=== PATIENT | male | born 1950 | race Caucasian/White ===

== ENCOUNTER → 2024-11-29 | Outpatient (CLI) | payer OTHER ==
--- NOTE | 2024-11-29 10:17 | HMCIMG ---
UPPER GI SERIES History: Diaphragmatic hernia without obstruction or gangrene, GERD w/ESOPHAGITIS Comparison: none Contrast: barium sulfate suspension, effervescent granules TECHNIQUE: EXAMINATION IS DONE UNDER FLUOROSCOPIC CONTROL, WITH FLUOROSCOPIC SPOTS OBTAINED. ALSO, OVERHEAD AP, LATERAL AND OBLIQUE VIEWS WERE OBTAINED. FINDINGS: Under fluoroscopic evaluation, the patient's esophagus demonstrates normal course, contour and caliber. Normal motility is seen. There is a small hiatal hernia. No reflux is seen. The stomach, duodenal bulb, duodenal C-loop, and visualized proximal small bowel show no extrinsic compression, fixed filling defect, ulcerations or abnormalities in mucosal pattern. No tumor is identified. There is no gastric outlet obstruction. There is no extravasation. There is no evidence of malrotation. IMPRESSION: Small hiatal hernia.
== END | disposition home or self-care (01) ==
LOC: RAH 08:20 → EDUNIT# 09:00
PROVIDERS: ATTEND Surgery
DX: K44.9 Diaphragmatic hernia without obstruction or gangrene (principal); K21.00 Gastro-esophageal reflux disease with esophagitis, without bleeding; K22.2 Esophageal obstruction; R49.8 Other voice and resonance disorders
CPT/HCPCS: 74240

== ENCOUNTER 2024-12-27 05:47 | Observation (INO) | payer OTHER ==
[2024-12-24 11:19] LABS: POTASSIUM 4.6 mmol/L (3.5-5.1)
[2024-12-24 11:42] LABS: INR 0.97 (0.85-1.15); PROTHROMBIN TIME 10.3 SEC (9.6-11.6)
[2024-12-24 11:43] VITALS: BP 145/79; PULSE 56; RESP 18; TEMP 97.6
[2024-12-24 11:43] LABS: PARTIAL THROMBOPLASTIN TIME 27.1 SEC (26.3-35.5)
[2024-12-24 11:50] LABS: BASOPHILS # (AUTO) 0.04 K/uL (0.00-0.20); BASOPHILS % (AUTO) 0.7 % (0.0-5.0); EOSINOPHILS # (AUTO) 0.32 K/uL (0.00-0.70); EOSINOPHILS % (AUTO) 5.3 % (0.0-8.0); IMMATURE GRANULOCYTE ABSOLUTE 0.02 K/uL (0-1); LYMPHOCYTES # (AUTO) 1.2 K/uL (1.0-4.8); LYMPHOCYTES % (AUTO) 19.3 % (21.0-51.0); MEAN CORPUSCULAR HEMOGLOBIN 30.1 pg (27.0-33.0); MEAN CORPUSCULAR HGB CONC 32.8 g/dL (32.0-36.0); MEAN CORPUSCULAR VOLUME 91.6 fL (79-99); MONOCYTES # (AUTO) 0.3 K/uL (0.1-1.0); MONOCYTES % (AUTO) 4.9 % (3.0-13.0); NEUTROPHILS # (AUTO) 4.2 K/uL (1.8-7.7); NEUTROPHILS % (AUTO) 69.5 % (40.0-77.0); PLATELET COUNT (AUTO) 210 K/uL (130-400); RED BLOOD CELL COUNT(AUTO) 5.02 MIL/uL (4.50-6.20); RED CELL DISTRIBUTION WIDTH 13.3 % (11.0-15.5); WHITE BLOOD COUNT (AUTO) 6.1 K/uL (4.8-10.8)
--- NOTE | 2024-12-24 13:20 | EKG ---
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
--- NOTE | 2024-12-26 10:30 | NUR ---
EKG REPORTED EKG RESULTS TO DR. GROSS, INFORMED PATIENT HAS CARDIAC CLEARANCE IN CHART. STATES OK TO PROCEED
[2024-12-27] VITALS (24 sets, daily range): BP systolic 120–159; BP diastolic 45–105; PULSE 60–95; RESP 15–20; TEMP 96.8–98.7; O2SAT 97–98
[~2024-12-27] VITALS: Ht 175.3 cm; Wt 63.7 kg
[~2024-12-27 05:47] MED LIST: OMEP40CA21 PO
[2024-12-27] MEDS: hydroMORPHone 1 MG INJ ONE (07:17)
[2024-12-27] MEDS: acetaMINOPHEN 100 ML ONE (07:17)
[2024-12-27] MEDS ORDERED: MIDAZOLAM HCL 1 MG/ML 2ML VIAL ONE (07:21)
[2024-12-27] MEDS ORDERED: proPOFol 10 MG/ML 20ML VIAL IV ONE (07:21)
[2024-12-27] MEDS ORDERED: FENTanyl CITRate PF 50 MCG/1 ML 2ML VIAL ONE (07:21)
[2024-12-27] MEDS ORDERED: LIDOCAINE PF 100MG/5ML (2%) SYRINGE 5ML ONE (07:23)
[2024-12-27] MEDS ORDERED: rocuRONium bROMide 10MG/1ML 5ML VL ONE (07:24)
[2024-12-27] MEDS: PoTASSium chloRIDE 20MEQ/100ML 100 ML IV ONE (07:53)
[2024-12-27] MEDS: ceFAZolin SODIUM 2 GM VIAL ONE (08:23)
[2024-12-27] MEDS ORDERED: DIPH50 PO (08:24)
[2024-12-27] MEDS ORDERED: dexaMETHasone SOD PHOSPHATE 4 MG/ML 1ML VIAL ONE (08:25)
[2024-12-27] MEDS ORDERED: ondanSETRON 4MG INJ ONE (08:26)
[2024-12-27] MEDS: LACTATED RINGERS 1000ML 1,000 ML IV ONE (08:26)
[2024-12-27] MEDS: ceFAZolin SODIUM 2 GM VIAL IVPB ONE ×2 (08:30)
[2024-12-27] MEDS ORDERED: ePHEDrine SULFate 50 MG/ML AMPULE ONE (09:05)
[2024-12-27] MEDS ORDERED: NEOSTIGMINE METHYLSULFATE 1MG/ML IV ONE (09:59)
[2024-12-27] MEDS ORDERED: GLYCOPYRROLATE 0.2 MG/ML 5 ML VIAL ONE (09:59)
--- NOTE | 2024-12-27 10:09 | OP ---
Operative Note: DATE OF PROCEDURE: 12/27/24 SURGEON: VALDEMAR LOERA MD LEAK HUNTER: Orlando Loera MD p.a. C ANESTHESIA: General and local ANESTHESIOLOGIST/BENCH HAND: [facility] anesthesia team PREOPERATIVE DIAGNOSIS: Symptomatic paraesophageal hiatal hernia POSTOPERATIVE DIAGNOSIS: As above SYNOPSIS: Paraesophageal hiatal hernia repair with mesh reinforcement and posterior partial fundoplication performed without complication PROCEDURE: 1. Robotic assisted paraesophageal hiatal hernia repair with mesh reinforcement 2. Posterior partial fundoplication 3. EGD ESTIMATED BLOOD LOSS: Minimal, less than 30 cc INDICATIONS: As above DESCRIPTION OF PROCEDURE: After standard precautions and preparations were undertaken a Veress needle and optical trocar were used to enter the abdominal cavity. All other instruments were placed under direct vision. The robotic system was docked in the standard fashion. We began by opening pars flaccida and identifying the right donnell of the diaphragm. From there we are able to enter into the mediastinum into a nearly avascular plane. This plane was developed circumferentially to allow the GE junction to fall out of the mediastinum and into the peritoneal cavity without any tension. There was a small rent in the right pleural lining exposing the right chest. This rent was opened by a few cm in order to prevent any kind of tension phenomenon. The majority of the dissection of the case was undertaken at a intra-abdominal pressure of 8-10 mmHg. Once the right and left crura were free of unwanted attachments down to the crossing fibers we began our hiatal hernia repair. We sutured the right and left crura back in reapproximation from the crossing fibers upwards towards the posterior esophageal wall. Care was taken not to over tighten. This was then reinforced with placement of a mesh. The mesh was cut in a horseshoe fashion and placed as an overlay. It was sutured in place to prevent mesh migration. Lastly we mobilize the proximal fundus and pulled it through the retroesophageal window. It was wrapped 270 around the posterior distal esophagus. It was sutured in place. Throughout the case the EGD scope was utilized to view appropriate anatomic landmarks. At the end of the case the GE junction was resting below the hiatus, the hiatal hernia repair was not overly tightened, and the posterior partial fundoplication could be visualized and a retro flexed view. All instrument counts were verified as correct prior to ending the case inclu ding needles and sponges. VALDEMAR LOERA MD Dec 27, 2024 10:09
[2024-12-27] MEDS: PROMETHAZINE HCL 25 MG/ML 1ML AMPULE IM ONE (10:46)
[2024-12-27] MEDS ORDERED: HYDROcod/acetaMINOPHEN 7.5/325 MG 15 ML UDCUP PO PRN (11:00)
[2024-12-27] MEDS ORDERED: ondanSETRON 4MG INJ IVP PRN (11:00)
[2024-12-27] MEDS: LACTATED RINGERS 1000ML 1,000 ML IV SCH (11:00)
[2024-12-27] MEDS ORDERED: hydroMORPHone 1 MG INJ IVP PRN (11:00)
[2024-12-27] MEDS ORDERED: PROCHLORPERAZINE 10MG/2ML INJ IV PRN (11:00)
[2024-12-27] MEDS: ketOROlac 30MG VIAL (30MG/ML) IV PRN (11:21)
--- NOTE | 2024-12-27 13:54 | PN ---
GENERAL SURGERY PROGRESS NOTE Date/Time Patient Seen: [12/27/2024 11:00 a.m. ] Problem List: [ ] Interval History: [ Postop day 0. Pain tolerable with p.r.n. medication.] Current Medications Medications (Trade) Dose Ordered Sig/Joyce Route Start Time Stop Time Status Last Admin Dose Admin Famotidine (Pepcid 20mg Vial) 20 mg BID IV 12/27/24 21:00 01/26/25 20:59 Lactated Ringer's 1,000 ml @ 125 mls/hr Q8H IV 12/27/24 11:00 01/26/25 10:59 Physical Examination: ABD: [Incisions clean, dry and intact, Dermabond in place Vital Signs (last 8hr) Date Time Temp Pulse Resp B/P (MAP) Pulse Ox O2 Delivery O2 Flow Rate FiO2 12/27/24 11:14 97.5 84 17 127/66 95 Room Air 12/27/24 11:10 98 Nasal Cannula* 2 28 12/27/24 11:09 84 16 132/71 94 Room Air 12/27/24 11:04 83 15 136/77 95 Room Air 12/27/24 10:59 80 15 125/61 96 Nasal Cannula 2.0 12/27/24 10:54 85 17 134/74 97 Nasal Cannula 2.0 12/27/24 10:49 80 15 144/72 96 Nasal Cannula 3.0 12/27/24 10:44 92 16 136/74 96 Nasal Cannula 3.0 12/27/24 10:39 95 16 134/72 97 Nasal Cannula 3.0 12/27/24 10:34 91 15 133/68 99 Nonrebreathing Mask 10.0 12/27/24 10:29 81 15 134/65 99 Nonrebreathing Mask 10.0 12/27/24 10:24 97.7 85 16 125/68 99 Nonrebreathing Mask 10.0 12/27/24 06:30 96.8 65 18 143/79 98 Room Air Laboratory: [ ] Diagnostics / Radiology: [Copy/Paste Echos/Imaging Report here] Impression and Plan: [ Plan is for discharge home in the next day or two as long as patient fred ating p.o., ambulatory and pain under control. Discussed with the patient and family. They understand and agree.] JOSHUA LOERA Dec 27, 2024 13:54
[2024-12-27] MEDS: FAMOTIDINE 20MG VIAL IV SCH (20:02)
--- NOTE | 2024-12-28 01:01 | NUR ---
REFUSED IV PT COMPLAINING OF IV ACCESS STATING THAT IT WAS BOTHERING HIM. CHECKED IV STATING THAT IT WASN'T INFILTRATED AND FLUSHED WELL. PATIENT STATED HE WANTED HIS IV OUT. EDUCATED PATIENT THE IMPORTANCE OF IV ACCESS. PATIENT CONTINUED TO REFUSE STATING THAT HE WILL BE OKAY. IV REFUSAL SIGNED AND IN CHART.
--- NOTE | 2024-12-28 08:08 | NUR ---
AMA PATIENT LEFT AMA AT 0713 THIS MORNING WITH OLGA HARRIS. I NOTIFIED CATARINA MENA AT 0735. I HAD NOT RECEIVED REPORT ON THE PATIENT AT THE TIME OF AMA.
== END 2024-12-28 07:15 | disposition left against medical advice (07) ==
LOC: DAH 05:47 → INTOOBSV 05:48 → DAHIP 05:48 → 3DH 11:10
PROVIDERS: ADMIT Surgery; ATTEND Surgery
DX: K44.9 Diaphragmatic hernia without obstruction or gangrene (principal); K21.00 Gastro-esophageal reflux disease with esophagitis, without bleeding; K22.2 Esophageal obstruction; Z86.2 Personal history of diseases of the blood and blood-forming organs and certain disorders involving the immune mechanism; Z79.899 Other long term (current) drug therapy
CPT/HCPCS: 80048; 85025; 85610; 85730; 86850 ×2; 86900 ×2; 86901 ×2; 36415 ×2; 93005; 96374; 96375; 43282; A6260; J1100; G0378 ×16; A4223 ×2; A4600; A4663; A4215 ×2; J7120; J3490 ×4; J3010; J1171; J2550; J2003; J2250; J2704; J2405; J3480; J1885; J2710; J0665; J0690 ×2; C1781; A4930; A4213; A4222; A4221; A4216; 43235

== ENCOUNTER 2025-04-07 06:06 | Emergency (ER) | payer OTHER ==
[~2025-04-07] VITALS: Ht 175.3 cm; Wt 61.4 kg
[~2025-04-07 06:06] MED LIST changes: +DIPH50 PO
--- NOTE | 2025-04-07 06:15 | EKG ---
[facility] Test Date: 2025-04-07 Test Time: 06:11:41 Pat Name: ANKUSH DAY Department: ED Room: Gender: M Remedial Reading Teacher: [id number] : 1950 Requested By: KATERINA POTTER Order Number: [id number] Reading MD: Raul Fragoso Measurements Intervals [place] Rate: 69 P: 41 [place]: 192 QRS: -65 QRSD: 134 T: 25 QT: 449 QTc: 481 Interpretive Statements Sinus rhythm Ventricular premature complex RBBB and LAFB Compared to ECG 12/24/2024 11:08:47 Ventricular premature complex(es) now present Sinus bradycardia no longer present Bifascicular block no longer present Electronically Signed On 04-08-2025 00:07:24 CDT by Raul rFagoso Please click the below link to view image of tracing.
[2025-04-07 06:19] LABS: IMMATURE GRANULOCYTE ABSOLUTE 0.07 K/uL (0-1); NUCLEATED RED BLOOD CELLS 0.0 % (0.0-0.19); PLATELET COUNT (AUTO) 231 K/uL (130-400); RED BLOOD CELL COUNT(AUTO) 4.68 MIL/uL (4.50-6.20); RED CELL DISTRIBUTION WIDTH 13.0 % (11.0-15.5); WHITE BLOOD COUNT (AUTO) 14.9 K/uL (4.8-10.8)
[2025-04-07] MEDS: LACTATED RINGERS 1000ML 1,000 ML IV ONE (06:23)
[2025-04-07 06:28] LABS: CREATININE 1.4 mg/dL (0.5-1.3); GLOMERULAR FILTR. RATE CALC 53.0 mL/min (>90); GLUCOSE,RANDOM 141.0 mg/dL (70-105); SODIUM SERUM 144.0 mmol/L (136-145); UREA NITROGEN, BLOOD 21.0 mg/dL (7-18)
--- NOTE | 2025-04-07 06:39 | ERN ---
ED Note History of Present Illness Stated Complaint: Patient comes in because of the left lower quadrant abdominal pain and some chronic diarrhea. Says he falls up with digestive specialists that it does not knowwhy has a denies any other previous medical problems denies chest pain or shortness of breath Chief Complaint: Abdominal Pain Time Seen by MD: 06:28 Allergies: Coded Allergies: No Known Drug Allergies (Unverified Allergy, Unknown, 12/24/24) Home Meds Reported Medications Diphenhydramine HCl (Benadryl) 50 Mg Cap, 50 MG PO AD PRN for SLEEP, CAP 12/27/24 Omeprazole (Omeprazole) 40 Mg Capsule.dr, 40 MG PO DAILY, CAP 12/24/24 Past Medical History Past Medical History: No Pertinent History Surgical History: Other Surgical History Other: ESOPHAGEAL HERNIA Review of System Dictation Constitutional: Negative for fever,chills, and weight loss Eyes: Negative for injury, pain,redness, and discharge ENT: Negative for injury,pain or swelling Cardiovascular: Negative for chest pain, palpitations, and edema Respiratory: Negative for shortness of breath, cough, and wheezing, Abdomen/GI: Abdominal pain diarrhea Back: Negative for injury and pain : Negative for injury, bleeding and discharge MS/Extremity: Negative for injury and deformity Skin: Negative for rash, and discoloration Neuro: Negative for headache, weakness, numbness, tingling, and seizure Psych: Negative for suicide ideation, homicidal ideation, and hallucinations Initial Vital Sign VS Vital Signs Date Time Temp Pulse Resp B/P (MAP) Pulse Ox O2 Delivery O2 Flow Rate FiO2 04/07/25 06:07 96.8 55 16 143/65 100 Room Air 04/07/25 06:15 0 21 Physical Exam Dictation General: awake, alert, NAD Head/Face: Normocephalic, atraumatic Eyes: PERRL, EOMI, vision at baseline ENT: oral cavity clear, TMs clear, no signs of infection Neck: Trachea midline, supple, no nuchal rigidity Cardiovascular: RRR, normal S1/S2, No MRGs, no JVD Respiratory: CTAB, no respiratory distress, No rales or wheezes Abdomen: Soft, non-tender, non-distended, normal bowel sounds, no guarding or rebound. Skin: Warm, dry, normal turgor, no rash MS/Extremity: Pulses equal, no cyanosis, neurovascular intact, FROM Neuro: COAx4, GCS 15, strength 5/5, CN 2-12 intact, normal cerebellar exam, normal gait, Psych: Normal behavior, mood, and affect normal Results (Laboratory/Radiology) Laboratory/Radiology Laboratory Tests Test 04/07/25 06:12 04/07/25 08:28 White Blood Count 14.9 K/uL (4.8-10.8) H Red Blood Count 4.68 MIL/uL (4.50-6.20) Hemoglobin 14.3 g/dL (14.0-18.0) Hematocrit 43.3 % (42-54) Mean Corpuscular Volume 92.5 fL (79-99) Mean Corpuscular Hemoglobin 30.6 pg (27.0-33.0) Mean Corpuscular Hemoglobin Concent 33.0 g/dL (32.0-36.0) Red Cell Distribution Width 13.0 % (11.0-15.5) Platelet Count 231 K/uL (130-400) Mean Platelet Volume 11.3 fL (7.5-10.5) H Immature Granulocyte % (Auto) 0.5 % (0-1) Neutrophils (%) (Auto) 87.2 % (40.0-77.0) H Lymphocytes (%) (Auto) 7.9 % (21.0-51.0) L Monocytes (%) (Auto) 3.4 % (3.0-13.0) Eosinophils (%) (Auto) 0.7 % (0.0-8.0) Basophils (%) (Auto) 0.3 % (0.0-5.0) Neutrophils # (Auto) 13.0 K/uL (1.8-7.7) H Lymphocytes # (Auto) 1.2 K/uL (1.0-4.8) Monocytes # (Auto) 0.5 K/uL (0.1-1.0) Eosinophils # (Auto) 0.10 K/uL (0.00-0.70) Basophils # (Auto) 0.04 K/uL (0.00-0.20) Absolute Immature Granulocyte (auto 0.07 K/uL (0-1) Nucleated Red Blood Cells 0.0 % (0.0-0.19) White Cell Morphology Comment See comments Sodium Level 144 mmol/L (136-145) Potassium Level 4.0 mmol/L (3.5-5.1) Chloride Level 106 mmol/L (101-111) Carbon Dioxide Level 30 mmol/L (21-32) Blood Urea Nitrogen 21 mg/dL (7-18) H Creatinine 1.4 mg/dL (0.5-1.3) H Glomerular Filtration Rate Calc 53 mL/min (>90) Random Glucose 141 mg/dL (70-105) H Total Calcium 9.6 mg/dL (8.5-10.1) Troponin I High Sensitivity 6 ng/L (4-75) Lipase 37 U/L (16-77) Urine Color LIGHT-YELLOW (YELLOW) Urine Appearance CLEAR (CLEAR) Urine pH 5.5 (5.0-8.0) Urine Specific [place] 1.011 (1.001-1.031) Urine Protein NEGATIVE mg/dL (NEGATIVE) Urine Glucose (UA) NEGATIVE mg/dL (NEGATIVE) Urine Ketones NEGATIVE mg/dL (NEGATIVE) Urine Occult Blood SMALL (NEGATIVE) H Urine Nitrate NEGATIVE (NEGATIVE) Urine Bilirubin NEGATIVE mg/dL (NEGATIVE) Urine Urobilinogen 0.2 mg/dL (0.2-1.0) Urine Leukocyte Esterase 25 [place]angela/uL (NEGATIVE) H Urine RBC 2-5 /HPF (0-1) H Urine WBC 6-10 /HPF (0-1) H Urine Bacteria None /HPF (None Seen) Urine Hyaline Casts 2-5 /LPF (0-1 /LPF) H ED Course ED Course Orders Procedure Category Date Status Time Vital Signs Per CPOE 04/07/25 Transmitted Routine 06:09 Saline Lock Iv CPOE 04/07/25 Transmitted 06:09 Cbc With Differential LAB 04/07/25 Complete 06:09 Lipase LAB 04/07/25 Complete 06:09 Urinalysis Profile LAB 04/07/25 Complete 06:09 12 Lead Ekg Tracing- EKG 04/07/25 Complete Technical 06:09 Troponin I High LAB 04/07/25 Complete Sensitivity 06:09 Basic Metabolic Panel LAB 04/07/25 Complete 06:09 Lactated Ringers PHA 04/07/25 Complete 1000ml (Lactated 06:30 Morphine 4mg Syg PHA 04/07/25 Complete (Morphine 4mg Syg) 06:30 Ondansetron 4mg Inj PHA 04/07/25 Complete (Zofran 4mg Inj) 06:30 Ct Abdomen/Pelvis W/O CT 04/07/25 Resulted Contrast 06:17 Chest 1vw RAD 04/07/25 Resulted 06:17 Culture Urine ABELARDO 04/07/25 Logged 09:16 Current Medications Medications (Trade) Dose Ordered Sig/Joyce Route PRN Reason Start Time Stop Time Status Last Admin Dose Admin Lactated Ringer's 1,000 ml @ 0 mls/hr ONCE ONCE IV 04/07/25 06:30 04/07/25 06:31 DC 04/07/25 06:23 Morphine Sulfate (morPHINE 4MG SYG) 4 mg ONCE ONCE IVP 04/07/25 06:30 04/07/25 06:31 DC 04/07/25 06:24 Ondansetron HCl (zoFRAN 4MG INJ) 4 mg ONCE ONCE IVP 04/07/25 06:30 04/07/25 06:31 DC 04/07/25 06:24 Vital Signs Date Time Temp Pulse Resp B/P (MAP) Pulse Ox O2 Delivery O2 Flow Rate FiO2 04/07/25 07:54 97.7 70 16 139/63 100 Room Air* 0 21 04/07/25 06:15 96.3 71 16 160/72 100 Room Air* 0 21 04/07/25 06:07 96.8 55 16 143/65 100 Room Air Medical Decision Making MDM MDM: Differential diagnosis: Rationale: Tests considered and ordered secondary to shared decision making include: Previous outside records reviewed: Old ER visits. Risk of complication and/or morbidity or mortality of patient management: None Medications-Per medication reconciliation Need for hospitalization: Patient does not meet criteria for hospitalization. Need for emergency major/minor surgery: No There are no social concerns with this patient. Prescription drug management Prescriptions will include symptomatic care Patient's prior external medical records from other ER visits were reviewed by me as indicated. Prior testing and results from previous visits were reviewed. Prior tests were taken into account with medical decision making and resource utilization, independent historian/historians were used to obtain complete medical history. I independently interpreted the test that were performed, results were reviewed by me and considered findings on radiology if ordered. Medical management and examination interpretation discussions were had by me with other qualified healthcare professionals as indicated for the patient's care. Handed off at shift change patient would small renal stone and hydronephrosis, symptoms improved after IV fluids and Toradol symptom free now, patient offered admission for symptomatic relief but room wants to go home instead mild signs of UTI prescriptions given stable for discharge. DX & DISP Disposition: Discharge Departure Impression: Primary Impression: Renal colic on left side Condition: Stable Scripts Cephalexin Monohydrate (Keflex) 500 Mg Cap 500 MG PO BID for 5 Days, #10 CAP Prov: REA FERRER MD 04/07/25 Ondansetron (Ondansetron Odt) 4 Mg Tab.rapdis 4 MG PO BID for vomiting for 5 Days, #10 TAB Prov: REA FERRER MD 04/07/25 Referrals: WILLI GARCIA MD (PCP) KATERINA POTTER MD Apr 07, 2025 06:39 REA FERRER MD Apr 07, 2025 09:23
--- NOTE | 2025-04-07 06:59 | HMCIMG ---
EXAM: CR Chest, 1 View. CLINICAL HISTORY: Pain COMPARISON: None provided. FINDINGS: LUNGS: The lungs show no infiltrate or other acute finding. PLEURAL SPACES: No evidence of pleural effusion or pneumothorax. MEDIASTINUM: Cardiac size and mediastinal contours within normal limits. BONES: No aggressive appearing osseous lesion seen. IMPRESSION: No acute cardiopulmonary pathology is evident. /[place]
--- NOTE | 2025-04-07 07:03 | HMCIMG ---
EXAM: CT Abdomen and Pelvis Without IV contrast CLINICAL HISTORY: ABD PAIN TECHNIQUE: Axial computed tomography images of the abdomen and pelvis without intravenous contrast. CONTRAST: No IV contrast. COMPARISON: None provided. FINDINGS: LUNG BASES: The lung bases appear clear. No pleural effusions are seen. LIVER: Unremarkable. GALLBLADDER AND BILE DUCTS: The gallbladder appears within normal limits. No radioopaque gallstones are seen. No biliary ductal dilatation is evident. PANCREAS: Unremarkable. SPLEEN: Unremarkable. ADRENAL GLANDS: Unremarkable. KIDNEYS, URETERS, AND BLADDER: 4 mm stone in the left distal ureter with moderate left hydroureteronephrosis. Bilateral subcentimeter nonobstructing renal collecting system stones. No right ureteral stones. No right hydronephrosis. STOMACH AND BOWEL: Unremarkable appearance of the stomach and bowel. No evidence of bowel obstruction. No evidence suggesting enteritis or colitis. APPENDIX: No evidence of acute appendicitis on CT examination. PERITONEUM: No free fluid. No free air. LYMPH NODES: No lymphadenopathy is evident. REPRODUCTIVE: Unremarkable as visualized. VASCULATURE: No evidence of abdominal aortic aneurysm. BONES: No aggressive appearing osseous lesion. No acute osseous pathology evident. IMPRESSION: 4 mm stone in the left distal ureter with moderate left hydroureteronephrosis. /[place]
[2025-04-07 09:01] LABS: APPEARANCE,URINE CLEAR (CLEAR); GLUCOSE, URINE (UA) NEGATIVE (NEGATIVE); LEUKOCYTE ESTERASE ,URINE 25 Leu/uL (NEGATIVE); NITRATE,URINE NEGATIVE (NEGATIVE); OCCULT BLOOD,URINE SMALL (NEGATIVE)
[2025-04-07 09:02] LABS: ADD UA MICROSCOPIC YES
[2025-04-07] MEDS ORDERED: ONDA-243 PO (09:23)
[2025-04-07] MEDS ORDERED: CEPH500B PO (09:23)
[2025-04-07 09:42] VITALS: BP 124/70; PULSE 71; RESP 17; TEMP 98; O2SAT 100
--- NOTE | 2025-04-07 09:44 | NUR ---
DC PATIENT WAS DC'D BY DR FERRER TODAY I DC'D PATIENTS IV WITH CATH STILL INTACT AND APPLIED 2X2 GAUZE WITH COBAN I EXPLAINED TO PATIENT TO FOLLOW UP WITH PCP, PROVIDED INFO BASED ON DIAGNOSIS, AND EXPLAINED NEW PRESCRIPTIONS AND HOW TO TAKE THEM, I ALSO ANSWERED ANY FOLLOW UP QUESTIONS THE PATIENT HAD, PATIENT AMBULATED OUT OF ED, NO COMPLICATIONS
== END 2025-04-07 09:13 | disposition home or self-care (01) ==
LOC: EDH 06:06
DX: N13.2 Hydronephrosis with renal and ureteral calculous obstruction (principal); Z79.899 Other long term (current) drug therapy
CPT/HCPCS: 99285; 74176; 96374; 96361; 71045; 96375; 84484; 80048; 83690; 85025; 87086; 81001; 36415; 93005; J7120; J2405; J2270